=== PATIENT | male | born 2000 | race Caucasian/White ===

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

== ENCOUNTER 2021-05-05 16:35 | Emergency (ER) | payer OTHER, SELFPAY ==
[2021-05-05 16:48] VITALS: BP 136/99; PULSE 109; RESP 18; TEMP 36.8; O2SAT 97
--- NOTE | 2021-05-05 16:59 | ED.SKABFB ---
HPI - Skin/Abscess/Foreign Bdy General Chief complaint: Skin/Abscess/Foreign Body Stated complaint: Poison maryana outbreak Source: patient Mode of arrival: ambulatory Limitations: no limitations History of Present Illness HPI narrative: this is a 20-year-old male that presents with some rash diffuse on arms and abdomen and back that started about 3 days ago when he got into poison maryana currently there is no shortness of breath no audible wheezing no fever chills no abdominal pain no nausea vomiting. complaint: rash Onset (ago): day(s) Tetanus up to date: no Location: generalized Severity: mild Related Data Allergies Allergy/AdvReac Type Severity Reaction Status Date / Time No Known Allergies Allergy Verified 06/16/20 14:20 Review of Systems Review of Systems: All systems reviewed & are unremarkable except as noted in HPI and below PMFSH Past Medical History Medical History Substance abuse Surgical History Surgical History No pertinent past surgical history Social History Social History Smoking status: Never smoker Substance use: current Substance use type: marijuana and heroin Exam Const: General: no acute distress and alert Orientation/consciousness: patient oriented x3 HENMT: Head: normal to inspection Eyes: Conjunctivae: conjunctivae normal Pupils: Equal, round and reactive pupils present EOM: EOMs intact bilaterally Neck: Neck: normal visual inspection, no lymphadenopathy and no meningeal signs Chest: Chest palpation & inspection: normal inspection of the chest Resp: Effort & Inspection: normal respiratory effort Auscultation: clear to auscultation bilaterally Cardio: Rate: regular rate Rhythm: regular rhythm GI: Inspection: distended : Testes: Testes normal Urinary Catheter: Urinary Catheter: patent and draining Back/Spine/Pelvis: Back: no CVA tenderness Skin: General skin exam: normal color Other: Contact dermatitis itchy rash located on his arms abdomen back Neuro: General: patient oriented x3, moves all extremities, no meningeal signs and no focal motor deficits Extrem: General: normal to inspection and no pedal edema Psych: Mental Status: mental status grossly normal Course Course Emergency Course: reassessment of patient will send medication to his pharmacy currently stable with no breathing issues no audible wheezing no nausea vomiting or abdominal pain. Vital Signs Vital signs: Vital Signs Temperature 36.8 C 05/05/21 16:48 Pulse Rate 109 H 05/05/21 16:48 Respiratory Rate 18 05/05/21 16:48 Blood Pressure 136/99 H 05/05/21 16:48 Pulse Oximetry 97 05/05/21 16:48 Temperature 36.8 C 05/05/21 16:48 Pulse Rate 109 H 05/05/21 16:48 Respiratory Rate 18 05/05/21 16:48 Blood Pressure 136/99 H 05/05/21 16:48 Pulse Oximetry 97 05/05/21 16:48 Critical Care Time Critical Care Time Critical Care Time: No Discharge Plan Discharge Clinical Impression: Contact dermatitis Qualifiers: Contact dermatitis type: allergic Contact dermatitis trigger: non-food plants Qualified Code(s): L23.7 - Allergic contact dermatitis due to plants, except food Patient Disposition: Home, Self-Care Condition: Stable Instructions: Antibiotic Form, Contact Dermatitis (ED), Poison Maryana (ED) Additional Instructions: take medicine as prescribed and follow-up primary care physician if symptoms persist or worsen. can use Benadryl, or Claritin [id number]. Prescriptions: New prednisone 20 mg tablet 20 mg PO DAILY 5 Days Qty: 5 RF: 0 triamcinolone acetonide 0.05 % ointment 1 applic topical TID 7 Days Qty: 110 RF: 0 Follow-up/Referrals: Dano Morales MD [Primary Care Provider] - Time of Disposition: 17:04
== END 2021-05-05 17:10 | disposition home or self-care (01) ==
PROVIDERS: Emergency Provider Emergency Medicine; PCP Internal Medicine
DX: L23.7 Allergic contact dermatitis due to plants, except food (principal)
CPT/HCPCS: 99283

== ENCOUNTER 2024-05-27 19:42 | Emergency (ER) | payer OTHER, SELFPAY ==
--- NOTE | ~2024-05-27 | XR_ITS ---
EXAM: XR humerus LT DATE: 05/27/2024 20:14 HISTORY: Left upper arm injury . COMPARISON: None available. FINDINGS: Normal mineralization. No fracture or dislocation. No lytic or blastic lesion. Joint space s are maintained. No erosion or periosteal change. Soft tissues within normal limits. IMPRESSION: No acute osseous finding in the left humerus. Reviewed, dictated and finalized at [facility].
[2024-05-27 19:46] VITALS: BP 105/67; PULSE 120; RESP 18; TEMP 37.2; O2SAT 97
--- NOTE | 2024-05-27 20:32 | ED.UPPEXIN ---
HPI - Extremity Injury (Upper) General Chief Complaint: Extremity Injury, Upper Stated Complaint: arm injury Time Seen by Provider: 05/27/24 19:50 Source: patient Mode of arrival: ambulatory Limitations: no limitations History of Present Illness HPI narrative: patient is a 23-year-old male that had a fall and hit his left upper arm on a curved causing some swelling and pain has good range of motion in his shoulder and elbow brisk radial pulse on the right the area is swollen and tender, with no other injuries. complaint: injury to: left Onset (ago): hour(s) Other injuries: none Handedness: right Severity: mild Severity scale (1-10): 4 Related Data Home Medications Medication Instructions Recorded Confirmed No Home Medications 05/27/24 05/27/24 Allergies Allergy/AdvReac Type Severity Reaction Status Date / Time No Known Allergies Allergy Verified 05/27/24 19:52 Review of Systems Review of Systems: All systems reviewed & are unremarkable except as noted in HPI and below PMFSH Past Medical History Medical History Substance abuse Surgical History Surgical History No pertinent past surgical history Social History Social History Smoking status: Never smoker Substance use: current Substance use type: marijuana and heroin Sexual Orientation (if Verbalized by the Patient): Straight or Heterosexual Exam Const: General: healthy appearing Nutritional Appearance: well nourished Orientation/consciousness: patient oriented x3 Limitations: no limitations Neck: Neck: normal visual inspection and no lymphadenopathy Chest: Chest palpation & inspection: normal inspection of the chest Resp: Auscultation: clear to auscultation bilaterally Cardio: Rate: regular rate Rhythm: regular rhythm GI: GI Palp: Yes Soft to palpation Skin: General skin exam: normal color Wounds: wounds noted Other: Bruising and swelling of left upper arm Neuro: General: patient oriented x3, moves all extremities and no meningeal signs Extrem: General: normal to inspection Psych: Mental Status: mental status grossly normal Affect: normal affect Course Vital Signs Vital signs: Vital Signs Temperature 37.2 C 05/27/24 19:46 Pulse Rate 120 H 05/27/24 19:46 Respiratory Rate 18 05/27/24 19:46 Blood Pressure 105/67 05/27/24 19:46 Pulse Oximetry 97 05/27/24 19:46 Oxygen Delivery Room Air 05/27/24 19:46 Temperature 37.2 C 05/27/24 19:46 Pulse Rate 120 H 05/27/24 19:46 Respiratory Rate 18 05/27/24 19:46 Blood Pressure 105/67 05/27/24 19:46 Pulse Oximetry 97 05/27/24 19:46 Oxygen Delivery Room Air 05/27/24 19:46 Critical Care Time Critical Care Time Critical Care Time: No Discharge Plan Discharge Clinical Impression: Arm bruise Qualifiers: Encounter type: initial encounter Laterality: left Qualified Code(s): S40.022A - Contusion of left upper arm, initial encounter Patient Disposition: Home, Self-Care Condition: Stable Instructions: Antibiotic Form, Contusion in Adults (ED) Additional Instructions: advised to continue ice pack to affected arm can use Tylenol or Motrin and follow up with primary if symptoms persist or worsen. Prescriptions: No Action No Home Medications Follow-up/Referrals: Dano Morales MD [Primary Care Provider] - Time of Disposition: 20:36
--- NOTE | 2024-05-27 20:37 | PC.NURSE ---
DR. VAZQUEZ AT PATIENT BEDSIDE TO PRESENT RESULTS OF IMAGING AND PLAN OF CARE.
== END 2024-05-27 20:41 | disposition home or self-care (01) ==
PROVIDERS: Emergency Provider Emergency Medicine; PCP Internal Medicine
DX: S40.022A Contusion of left upper arm, initial encounter (principal); W19.XXXA Unspecified fall, initial encounter
CPT/HCPCS: 73060; 99283